=== PATIENT | female | born 1990 | race Asian ===

== ENCOUNTER 2019-08-24 15:23 | Emergency (ER) | payer BC ==
[~2019-08-24] VITALS: Ht 157.5 cm; Wt 70.0 kg
[2019-08-24] MEDS ORDERED: ACET-66 PO (15:24)
[2019-08-24] MEDS ORDERED: ONDANSETRON HCL 4 MG TABLET PO ONE (17:45)
[2019-08-24 17:49] LABS: BASOPHILS % (AUTO) 0.4 % (0.0-2.0); EOSINOPHILS % (AUTO) 0.1 % (1.0-6.0); HEMOGLOBIN 13.4 g/dL (12.0-16.0); LYMPHOCYTES # (AUTO) 2.3 K/uL (1.0-4.8); LYMPHOCYTES % (AUTO) 10.3 % (22.0-44.0); MEAN CORPUSCULAR HEMOGLOBIN 30.4 pg (26.0-34.0); MEAN CORPUSCULAR HGB CONC 33.4 G/dL (31.0-37.0); MEAN CORPUSCULAR VOLUME 91 fL (80-100); MONOCYTES # (AUTO) 0.9 K/uL (0.1-1.0); MONOCYTES % (AUTO) 4.1 % (2.0-9.0); NEUTROPHILS # (AUTO) 18.9 K/uL (1.8-7.7); NEUTROPHILS % (AUTO) 85.1 % (40.0-70.0); PLATELET COUNT (AUTO) 339 K/uL (150-450); RED CELL DISTRIBUTION WIDTH 12.4 % (11.5-14.5)
[2019-08-24 18:02] LABS: ANION GAP 9 mmol/L (8-16); CALCIUM, TOTAL 9.2 mg/dL (8.8-10.5); CARBON DIOXIDE 27 mmol/L (22-29); CHLORIDE 100 mmol/L (98-107); CREATININE 0.88 mg/dL (0.60-1.30); GLOMERULAR FILTR. RATE CALC > 60 mL/min (>60); GLUCOSE,RANDOM 129 mg/dL (70-110); POTASSIUM 3.3 mmol/L (3.5-5.1); SODIUM SERUM 136 mmol/L (136-145); UREA NITROGEN, BLOOD 9 mg/dL (7-18)
[2019-08-24 18:14] LABS: ALANINE AMINOTRANSFERASE 42 U/L (12-78); ALBUMIN 3.9 g/dL (3.4-5.0); ALKALINE PHOSPHATASE 45 U/L (46-116); ASPARTATE AMINOTRANSFERASE 78 U/L (15-37); HCG,QUANTITATIVE < 1 mIU/mL (0-6); LIPASE 137 U/L (73-393); TOTAL PROTEIN, SERUM 7.8 g/dL (6.4-8.2)
[2019-08-24 18:27] LABS: BILIRUBIN,TOTAL 0.6 mg/dL (0.1-1.0)
[2019-08-24 18:46] LABS: APPEARANCE,URINE CLOUDY (CLEAR); GLUCOSE, URINE (UA) NEGATIVE (NEGATIVE); KETONES,URINE NEGATIVE (NEGATIVE); LEUKOCYTE ESTERASE ,URINE SMALL (NEGATIVE); NITRATE,URINE NEGATIVE (NEGATIVE); OCCULT BLOOD,URINE NEGATIVE (NEGATIVE); PROTEIN,URINE SEE CONFIRM (NEGATIVE)
[2019-08-24 18:59] LABS: BILIRUBIN,URINE PRELIM. POSITIVE (NEGATIVE)
[2019-08-24 19:02] LABS: BACTERIA,URINE Many /HPF (None Seen); RBC,URINE 0-2 /HPF (0-2)
[2019-08-24 19:03] LABS: SQUAMOUS EPITHELIAL CELL,UR Many /LPF (None Seen)
[2019-08-24 19:05] LABS: SULFOSALICYLIC ACID,URINE 3+ (Negative)
[2019-08-24] MEDS ORDERED: IOVERSOL 320 MG/ML 100 ML VIAL ONE (19:12)
[2019-08-24] MEDS ORDERED: SODIUM CHLORIDE 0.9% 100 ML ONE (19:12)
[2019-08-24] MEDS ORDERED: CeFAZolin 1 GM/DEXTROSE 50 ML IV ONE (20:30)
[2019-08-24 21:40] VITALS: BP 110/60
== END 2019-08-24 21:41 | disposition home or self-care (01) ==
LOC: EMS 15:24
DX: N39.0 Urinary tract infection, site not specified (principal); R07.9 Chest pain, unspecified; D72.829 Elevated white blood cell count, unspecified; Z79.899 Other long term (current) drug therapy
CPT/HCPCS: 36415; 71045; 74177; 80053; 81001; 83605; 83690; 84484; 84702; 85025; 87040; 87086; 93005; 96365; 99284; J0690; J7050; Q0162; Q9967